=== PATIENT | male | born 1995 | race Caucasian/White ===

== ENCOUNTER 2024-07-31 09:04 | Emergency (ER) | payer OTHER ==
[2024-07-31 09:12] VITALS: BP 142/91; PULSE 76; RESP 20; TEMP 100.4; BMI 28.2
[2024-07-31] MEDS ORDERED: ACETAMINOPHEN 500 MG TABLET (FP) ONE (09:58)
[2024-07-31] MEDS ORDERED: KETOROLAC TROMETHAMINE 30 MG/1 ML VIAL ONE (09:58)
[2024-07-31] MEDS: ACETAMINOPHEN 500 MG TABLET (FP) PO ONE (10:03)
[2024-07-31] MEDS: KETOROLAC TROMETHAMINE 30 MG/1 ML VIAL IM ONE (10:04)
== END 2024-07-31 10:40 | disposition home or self-care (01) ==
LOC: JER 09:04 → JERFT 09:04
PROC: 3E0133Z Introduction of Anti-inflammatory into Subcutaneous Tissue, Percutaneous Approach (ICD-10-PCS; principal; 2024-07-31)
DX: J10.1 Influenza due to other identified influenza virus with other respiratory manifestations (principal); R05.9 Cough, unspecified; R07.81 Pleurodynia; Z20.822 Contact with and (suspected) exposure to COVID-19
CPT/HCPCS: 0241U-QW; 71046-TC-FY; 71101-TC-LT-FY; 99284-25